=== PATIENT | male | born 1990 | race Caucasian/White ===

== ENCOUNTER 2024-06-27 00:14 | Emergency (ER) | payer BC, SELFPAY ==
[2024-06-27 00:24] VITALS: BP 143/90
[2024-06-27 00:53] VITALS: BMI 33.9
[2024-06-27 01:19] VITALS: BP 133/88
--- NOTE | 2024-06-27 01:38 | ED.GENMED ---
History of Present Illness
<MARY House - Last Filed: 06/27/24 17:55>
General
Chief Complaint: Heart Rate Problem
Source: patient and spouse
Exam Limitations: none
Time Seen by Provider: 06/27/24 00:58
History of Present Illness
History of Present Illness:
This is a 34 year old male that comes in with c/o a fluttering in his chest. States that this started about 1 hour ago and he had chest discomfort. States that there is a heaviness of his chest and his BP at home was 140/90. states that he is
under some stress as they just found out that she is and his job is tentative. Patient states that he has a slight headache. Denies any fever, chills, SOB, abd pain, nausea, vomiting, diarrhea, dizziness, urinary burning.
Past History
<MARY House - Last Filed: 06/27/24 17:55>
Past History
ED Past Medical History: Asthma; Negative HTN, Hypercholesterolemia or NIDDM
ED Past Surgical History: None
Social History
Tobacco: Non-smoker
Alcohol: Occasional
Personal:
Living: with family
Employment: Employed
Review of Systems
<MARY House - Last Filed: 06/27/24 17:55>
Review of Systems
All Other Systems: ROS reviewed and negative except as documented in HPI and ROS
Constitutional: Reports no symptoms; Denies fever or chills
EENT: Reports no symptoms
Respiratory: Denies cough or trouble breathing
Cardiac: Reports chest pain
ABD/GI: Reports no symptoms; Denies abdominal pain, nausea, vomiting or diarrhea
: Reports no symptoms; Denies dysuria, frequency or urgency
Musculoskeletal: Reports no symptoms
Skin: Reports no symptoms
Neurological: Reports headache (Slight); Denies dizzy
Psychiatric: Reports no symptoms
Phy Exam
<MARY House - Last Filed: 06/27/24 17:55>
General Physical Exam
General Presentation: well appearing and no apparent distress
General age: appears stated age
General Skin: warm and dry
General Habitus: normal
General Mental: alert
General Hydration: appears well hydrated
ENT Exam
ENT Exam: TM's normal, pharynx normal and neck supple
Eye Exam
Eye Exam: EOMI
Cardiovascular Exam
Cardiovascular Exam: regular rate/rhythm, no edema, no murmur and normal peripheral pulses
Pulmonary Exam
Pulmonary Exam: lungs clear, no respiratory distress, no rales, chest non tender, no crackles, no rhonchi, no wheezing and no cough
Gastrointestinal Exam
Gastrointestinal Exam: normal bowel sounds, non tender, soft, no organomegaly, no pulsatile mass and non distended
Musculoskeletal Exam
Musculoskeletal Exam: full ROM and no edema
Skin Exam
Skin Exam: normal color, warm/dry, no rash and no petechia
Psychiatric Exam
Psychiatric Exam: anxious
Course
<MARY House - Last Filed: 06/27/24 17:55>
Orders/Labs/Results
Orders:
Orders
06/27/24 00:18
ECG [Electrocardiogram (*1)] Urgent
Reason for Study: Tachycardia
EKG- Treatment ONCE
06/27/24 01:08
CR Chest - 2 Views Urgent
Comment:
Reason For Exam: Chest pain
06/27/24 01:11
Complete Blood Count/With Diff Urgent
Comprehensive Metabolic Panel Urgent
TSH Reflex To Free T4 Urgent
Troponin I Q3H
06/27/24 03:57
Troponin I Q3H
Abnormal Lab Results
06/27/24
01:11
MCHC 31.7 L g/dL
(33.0-37.0)
Abs Immat Gran (auto) 0.1 H 10^3/uL
(0-0.05)
Absolute Eos (auto) 1.0 H 10^3/uL
(0-0.7)
Immature Gran % 0.6 H %
(0-0.5)
Eosinophils % 11.2 H %
(0-6)
BUN 22 H mg/dl
(9-20)
06/27/24 01:11
06/27/24 01:11
Dehydration. Troponin 0.013
Vital Signs
Initial and Last Documented VS:
Initial Vital Signs
Temp Pulse Resp BP Pulse Ox
97.7 F 74 18 143/90 99
06/27/24 00:24 06/27/24 00:24 06/27/24 00:24 06/27/24 00:24 06/27/24 00:24
Last Documented Vital Signs
Temp Pulse Resp BP Pulse Ox
97.7 F 76 18 122/77 99
06/27/24 00:24 06/27/24 04:00 06/27/24 04:00 06/27/24 04:00 06/27/24 00:24
<Kera Solis, DO - Last Filed: 06/27/24 04:36>
Orders/Labs/Results
Orders:
Orders
06/27/24 00:18
ECG [Electrocardiogram (*1)] Urgent
Reason for Study: Tachycardia
EKG- Treatment ONCE
06/27/24 01:08
CR Chest - 2 Views Urgent
Comment:
Reason For Exam: Chest pain
06/27/24 01:11
Complete Blood Count/With Diff Urgent
Comprehensive Metabolic Panel Urgent
TSH Reflex To Free T4 Urgent
Troponin I Q3H
06/27/24 03:57
Troponin I Q3H
Abnormal Lab Results
06/27/24
01:11
MCHC 31.7 L g/dL
(33.0-37.0)
Abs Immat Gran (auto) 0.1 H 10^3/uL
(0-0.05)
Absolute Eos (auto) 1.0 H 10^3/uL
(0-0.7)
Immature Gran % 0.6 H %
(0-0.5)
Eosinophils % 11.2 H %
(0-6)
BUN 22 H mg/dl
(9-20)
06/27/24 01:11
06/27/24 01:11
Vital Signs
Initial and Last Documented VS:
Initial Vital Signs
Temp Pulse Resp BP Pulse Ox
97.7 F 74 18 143/90 99
06/27/24 00:24 06/27/24 00:24 06/27/24 00:24 06/27/24 00:24 06/27/24 00:24
Last Documented Vital Signs
Temp Pulse Resp BP Pulse Ox
97.7 F 76 18 122/77 99
06/27/24 00:24 06/27/24 04:00 06/27/24 04:00 06/27/24 04:00 06/27/24 00:24
<MARY House - Last Filed: 06/27/24 17:55>
MDM/Problems Addressed
Differential Diagnosis Includes:
Anxiety, PVC's
MDM/Problems Addressed:
This is a 34 year old male that comes in with c/o chest heaviness and a feeling of fluttering in his chest.
Will check labs, Chest x-ray.
Back into see patient and his . Explained that his blood work shows you are a little dehydrated and your chest x-ray and Troponin are normal. Will repeat the Troponin and if normal will discharge patient home. Patient to follow up with the
family doctor. Return with any concerns.
Chronic conditions affecting care:
NA
Acute Exacerbation and/or Progression of Chronic Illness:
NA
<MARY House - Last Filed: 06/27/24 17:55>
*Radiology
Radiology exam reviewed: preliminary read by ED provider (Chest- Negative for active disease. )
*Pulse Oximetry
Patient hypoxic: no
*EKG
Interpreted by ED Provider?: Yes
Heart Rate: 74
Rate: normal
Rhythm: sinus arrhythmia
[place]: normal axis
Interval: normal interval
QRS Pattern: normal QRS
Ischemia: no ischemia
*[employer] Interpretation
Rate: normal
Heart Rate: 79
Rhythm: sinus
*Critical Care Note
Total Time (30-74mins, 75-104mins- exclusive of procedures): Not Applicable
ED Attending Note
<MARY House - Last Filed: 06/27/24 17:55>
-
Portions of this chart may have been created with voice recognition software.� Occasional wrong word or��sound alike� substitutions may have occurred due to the inherent limitations of voice recognition software.
<Kera Solis DO - Last Filed: 06/27/24 04:36>
ED Attending Note
Patient seen and examined by attending physician: Yes
I performed the substantive portion of visit, reviewed & personally made and approve the management plan that is documented in note by myself or TRISTAN.: Yes
I performed a history and physical exam of patient and discussed management with resident, I reviewed resident's note and agree with documented findings and plan of care.: Yes
ED Attending Note:
34-year-old male without significant past medical history presenting for palpitations and chest discomfort. Patient without known history of cardiac disease. Does report a lot of stress recently, is , and is concerned that he may lose
his job. Denies any history of blood clots, recent surgery, recent travel. Hemodynamically stable in the emergency department.
No acute distress on exam, unremarkable cardiac and pulmonary exam. EKG nonischemic. Patient PERC negative without concern for PE. Initial troponin within normal limits. Pending second troponin given onset of symptoms with plan for discharge
with outpatient follow-up.
Discharge Plan
Departure
Patient Disposition: Home (Routine Discharge)
Patient with high blood pressure during this ER visit?: No
Condition: Good
Covid-19: Not Applicable
Discharge Problem:
Heart palpitations
Instructions: Palpitations (DC)
Referrals:
Edson Frey MD [Family Provider] - Follow up in 2-3 days
Activity Restrictions/Additional Instructions:
As discussed, your blood work does show a little Dehydration. Please increase your water intake to 8-8oz glasses daily. Your ECG and Troponin are normal. You do have an occasional premature Ventricular contraction. Please follow up with the family
doctor for recheck. IF YOU HAVE INCREASED OR CHANGING CHEST PAIN, OR YOU HAVE ANY OTHER CONCERNS PLEASE RETURN TO THE EMERGENCY ROOM.
Interventions
Interventions:
*General Assessment Last Done: 06/27/24 00:16
*Neglect/Abuse Screening Last Done: 06/27/24 00:16
*ED COVID-19 Vaccine History Last Done: 06/27/24 00:16
*Nursing Disposition Last Done: 06/27/24 04:37
ED- Cardiac Assessment Last Done: 06/27/24 00:53
ED- Pulmonary Assessment Last Done: 06/27/24 00:53
Discharge Date and Time
Discharge Date/Time: 06/27/24 04:38
Print Language: [facility]
[2024-06-27 01:40] LABS: % Basophils 0.8 % (0-2); % Eosinophils 11.2 % (0-6); % Immature Granulocytes 0.6 % (0-0.5); % Monocytes 7.2 % (1.7-9.3); % Neutrophils 48.2 % (42.2-75.2); Absolute Basophils 0.1 10^3/uL (0-0.2); Absolute Immature Granulocytes 0.1 10^3/uL (0-0.05); Absolute Lymphocytes 2.8 10^3/uL (1.2-3.4); Absolute Monocytes 0.6 10^3/uL (0.1-0.6); Absolute Neutrophils 4.2 10^3/uL (1.4-6.5); Hematocrit 45.7 % (39.0-52.0); Hemoglobin 14.5 g/dL (13.0-18.0); Mean Corp Hgb Conc. 31.7 g/dL (33.0-37.0); Mean Corpuscular Hgb 28.3 pg (27.0-31.0); Mean Corpuscular Volume 89.1 fL (80.0-94.0); Mean Platelet Volume 10.2 fL (7.4-10.4); Nucleated Red Blood Cells % 0 % (-); Platelet Count 206 10^3/uL (130-400); Red Blood Cell Count 5.13 10^6/uL (4.70-6.10); Red Cell Dist. Width 12.6 % (11.5-14.5); White Blood Cell Count 8.7 10^3/uL (4.8-10.8)
[2024-06-27 01:49] LABS: ALT (SGPT) 31 U/L (0-50); AST (SGOT) 25 U/L (17-59); Albumin 4.4 g/dl (3.5-5.0); Alkaline Phosphatase 48 U/L (38-126); Blood Urea Nitrogen 22 mg/dl (9-20); Calcium 9.4 mg/dl (8.4-10.2); Carbon Dioxide 27 mmol/L (22-30); Chloride 103 mmol/L (98-107); Estimated Creatinine Clearance 94 ml/min; Glucose 97 mg/dl (70-99); Potassium 4.1 mmol/L (3.5-5.1); Sodium 139 mmol/L (135-145); Total Bilirubin 0.2 mg/dl (0.2-1.3); Total Protein 6.5 g/dl (6.3-8.2); eGFR > 60.00
[2024-06-27 02:00] VITALS: BP 124/80
[2024-06-27 02:11] LABS: Troponin I 0.013 ng/ml
[2024-06-27 03:00] VITALS: BP 124/80
[2024-06-27 03:04] LABS: TSH Reflex To Free T4 3.59 uIU/ml (0.47-4.68)
[2024-06-27 04:00] VITALS: BP 122/77
[2024-06-27 04:28] LABS: Troponin I < 0.012 ng/ml
== END 2024-06-27 04:38 | disposition home or self-care (01) ==
LOC: EMR 00:14
PROVIDERS: Clinical Nurse Specialist Family Health; EMERGENCY PHYSICIAN Student in an Organized Health Care Education/Training Program; FAMILY PHYSICIAN Family Medicine
DX: R00.2 Palpitations (principal)
CPT/HCPCS: 99285; 71046; 80053; 84443; 84484; 85025; 93005